=== PATIENT | female | born 1985 | race Caucasian/White ===

== ENCOUNTER → 2025-01-13 13:54 | Outpatient (REF) | payer BC, SELFPAY | LOC: PNTC 13:54 | PROVIDERS: ATTENDING PHYSICIAN Obstetrics & Gynecology | DX: O99.210 Obesity complicating pregnancy, unspecified trimester (principal); O09.529 Supervision of elderly multigravida, unspecified trimester | CPT/HCPCS: 76801; 76813 ==

== ENCOUNTER → 2025-02-03 15:51 | Outpatient (REF) | payer BC, SELFPAY | LOC: PNTC 15:51 | PROVIDERS: ATTENDING PHYSICIAN Obstetrics & Gynecology | DX: O99.210 Obesity complicating pregnancy, unspecified trimester (principal) | CPT/HCPCS: 76805 ==

== ENCOUNTER → 2025-03-10 09:51 | Outpatient (REF) | payer BC, SELFPAY | LOC: PNTC 09:51 | PROVIDERS: ATTENDING PHYSICIAN Obstetrics & Gynecology | DX: O99.210 Obesity complicating pregnancy, unspecified trimester (principal); O09.529 Supervision of elderly multigravida, unspecified trimester | CPT/HCPCS: 76811; 76817 ==

== ENCOUNTER → 2025-04-18 10:30 | Outpatient (REF) | payer BC, SELFPAY | LOC: PNTC 10:30 | PROVIDERS: ATTENDING PHYSICIAN Student in an Organized Health Care Education/Training Program | DX: O09.529 Supervision of elderly multigravida, unspecified trimester (principal); O99.210 Obesity complicating pregnancy, unspecified trimester; Q21.0 Ventricular septal defect | CPT/HCPCS: 76816 ==

== ENCOUNTER → 2025-05-26 11:28 | Outpatient (REF) | payer BC, SELFPAY | LOC: PNTC 11:28 | PROVIDERS: ATTENDING PHYSICIAN Student in an Organized Health Care Education/Training Program | DX: Q21.0 Ventricular septal defect (principal); O99.213 Obesity complicating pregnancy, third trimester; O09.523 Supervision of elderly multigravida, third trimester; O35.B Maternal care for other (suspected) fetal abnormality and damage, fetal cardiac anomalies | CPT/HCPCS: 76816 ==

== ENCOUNTER → 2025-06-13 09:58 | Outpatient (REF) | payer BC, SELFPAY | LOC: PNTC 09:58 | PROVIDERS: ATTENDING PHYSICIAN Student in an Organized Health Care Education/Training Program | DX: O09.523 Supervision of elderly multigravida, third trimester (principal); O99.213 Obesity complicating pregnancy, third trimester; O35.B Maternal care for other (suspected) fetal abnormality and damage, fetal cardiac anomalies; Q21.0 Ventricular septal defect | CPT/HCPCS: 59025; 76815 ==

== ENCOUNTER → 2025-06-20 10:01 | Outpatient (REF) | payer BC, SELFPAY | LOC: PNTC 10:01 | PROVIDERS: ATTENDING PHYSICIAN Student in an Organized Health Care Education/Training Program | DX: O99.213 Obesity complicating pregnancy, third trimester (principal); O09.523 Supervision of elderly multigravida, third trimester; O35.B Maternal care for other (suspected) fetal abnormality and damage, fetal cardiac anomalies; Q21.0 Ventricular septal defect | CPT/HCPCS: 59025; 76815 ==

== ENCOUNTER 2025-06-27 10:52 | Observation (INO) | payer BC, SELFPAY ==
[2025-06-27 11:23] LABS: Urine Character Clear (Clear)
[2025-06-27 11:24] LABS: Hematocrit 30.4 % (37.0-47.0); Hemoglobin 10.7 g/dL (12.0-16.0); Mean Corp Hgb Conc. 35.2 g/dL (33.0-37.0); Mean Corpuscular Volume 83.3 fL (81.0-99.0); Platelet Count 163 10^3/uL (130-400); Red Cell Dist. Width 13.1 % (11.5-14.5)
[2025-06-27 11:37] VITALS: BP 145/72; BMI 38.6
[2025-06-27 11:40] LABS: ALT (SGPT) 13 U/L (0-35); AST (SGOT) 17 U/L (14-36); Albumin 3.5 g/dl (3.5-5.0); Alkaline Phosphatase 107 U/L (38-126); Blood Urea Nitrogen 6 mg/dl (7-17); Calcium 9.1 mg/dl (8.4-10.2); Carbon Dioxide 22 mmol/L (22-30); Chloride 105 mmol/L (98-107); Glucose 80 mg/dl (70-99); Potassium 3.4 mmol/L (3.5-5.1); Sodium 132 mmol/L (135-145); Total Protein 6.2 g/dl (6.3-8.2); eGFR > 60.00
[2025-06-27 11:48] LABS: Urine Squamous Cell >30 /LPF (Few)
== END 2025-06-27 12:40 | disposition home or self-care (01) ==
LOC: PNTC-IN 10:52
PROVIDERS: ADMITTING PHYSICIAN Obstetrics & Gynecology; ATTENDING PHYSICIAN Student in an Organized Health Care Education/Training Program
DX: O99.213 Obesity complicating pregnancy, third trimester (principal); O09.523 Supervision of elderly multigravida, third trimester; R03.0 Elevated blood-pressure reading, without diagnosis of hypertension; Z3A.36 36 weeks gestation of pregnancy; O36.63X0 Maternal care for excessive fetal growth, third trimester, not applicable or unspecified; Z88.1 Allergy status to other antibiotic agents
CPT/HCPCS: 59025; 76816; 80053; 81003; 81015; 82570; 84156; 85027; G0378

== ENCOUNTER 2025-07-04 10:56 | Inpatient (IN) | payer BC, SELFPAY ==
[2025-07-04 11:06] VITALS: BMI 38.9
[2025-07-04 11:09] VITALS: BP 149/85
[2025-07-04 11:27] LABS: Hematocrit 29.1 % (37.0-47.0); Hemoglobin 10.5 g/dL (12.0-16.0); Mean Corp Hgb Conc. 36.1 g/dL (33.0-37.0); Mean Corpuscular Volume 83.1 fL (81.0-99.0); Platelet Count 180 10^3/uL (130-400); Red Cell Dist. Width 13.3 % (11.5-14.5)
--- NOTE | 2025-07-04 11:34 | HPS.HSE ---
Family Physician
-
Family Physician: Carli Hinojosa DO
Chief Complaint
-
elevated blood pressures
History of Present Illness
HPI: Patient is a 40yo @37.5 who presents from [facility] with elevated BPs. She had elevated BPs on 06/27 and today, meeting criteria for at least gestational hypertension. Since patient >37wks, recommend delivery. Denies headache, vision changes,
chest pain, shortness of breath or RUQ pain.
complications
- Small to moderate VSD on echo- needs echo prior to discharge and Cardiology follow up outpatient
- FOB w/ history of VSD
- History PEC in G1
- History of shoulder dystocia G1, baby 7lb 5oz
- Advanced maternal age
- BMI 36.4
PMHx: Obesity
Meds: zyrtec, pepcid, PNV
Surghx: denies
All: cephalosporins
Socialhx: denies tobacco, etoh or illicit drug use
Famhx: non-contributory
OBHx: 05/2022 w/ shoulder dystocia 7lb 5oz
labs: Blood type B+, Ab neg, RPR non-reactive, UCx neg, HBsAg neg, HIV neg, GCCT neg, Rubella immune, Hep C neg, 1hr 98, GBS neg
Medical History
Past Medical History
Past Medical History: Reports None
Past Surgical History: Reports None
Social History
Tobacco: Non-smoker
Alcohol: None
Drug: None
Family History
Family History: Not pertinent
Allergies / Home Medications
Allergies reflects when Allergies were last updated in [facility].
Home Medications with original date entered in [facility]
Allergy/Medication List:
Meds: zyrtec, pepcid, PNV
All: cephalosporins
Review of Systems
-
A 12 point ROS was completed and negative except as noted: Yes
Physical Exam
Vital Signs
Vital Signs
Temp Pulse Resp BP
98.4 F 91 18 149/85
07/04/25 11:09 07/04/25 11:09 07/04/25 11:09 07/04/25 11:09
Physical Exam
General: Well Developed and Well Nourished
HEENT: NormoCephalic
Respiratory: Non Labored Respirations
Cardiac: Regular Rhythm
Genito-urinary: Deferred by me
Skin: Warm and Dry
Neuro: Awake, Alert and Oriented
Psych: Calm
Laboratory Results
-
07/04/25 11:16
Impression/Plan
-
IMPRESSION:
40yo @37.5 gHTN vs PEC with history of shoulder dystocia
PLAN:
- Patient with elevated BPs in [facility] today and on 06/27, meeting criteria for gestational hypertension or preeclampsia. Since she is >37wks, delivery is indicated. PEC labs ordered
- She has a history of a shoulder dystocia in G1 and baby weighed 7lb 5oz. This baby is measuring 3800g >90th percentile. Patient was previously counseled on induction of labor vs primary section and she would like to proceed with primary
section. Risks, benefits and alternatives reviewed including bleeding, infection, damage to surrounding structures and need for future operations. Patient also consented for a blood transfusion if needed.
- Gentamicin 5mg/kg and Clindamycin 900mg ordered for antibiotic prophylaxis
- NICU aware of VSD on echo. Report printed
- Proceed with primary section
[2025-07-04 11:56] LABS: ALT (SGPT) 16 U/L (0-35); AST (SGOT) 23 U/L (14-36); Albumin 3.5 g/dl (3.5-5.0); Alkaline Phosphatase 117 U/L (38-126); Blood Urea Nitrogen 9 mg/dl (7-17); Calcium 9.2 mg/dl (8.4-10.2); Carbon Dioxide 21 mmol/L (22-30); Chloride 107 mmol/L (98-107); Estimated Creatinine Clearance > 125 ml/min; Glucose 89 mg/dl (70-99); Potassium 3.4 mmol/L (3.5-5.1); Sodium 131 mmol/L (135-145); Total Protein 6.2 g/dl (6.3-8.2); eGFR > 60.00
[2025-07-04] MEDS: LR 1000 IV (13:01)
[2025-07-04] MEDS: TYLENOL 975 MG PO (14:31)
[2025-07-04] MEDS: BICITRA 30 ML PO (15:05)
[2025-07-04] MEDS: GENTAMICIN 60 MG IV (15:05)
[2025-07-04] MEDS: CLEOCIN 50 IV (15:05)
--- NOTE | 2025-07-04 18:02 | OR.RPT ---
Operative Report
Operative Report
Procedure date: 07/04/2025
Preop diagnosis: IUP @37.5, preeclampsia without severe features, history of shoulder dystocia, suspected macrosomia, advanced maternal age
Postop diagnosis: same
Surgeon: Emani Vaughan DO
Anesthesia: Spinal, Jaxon
QBL: 965mL
Findings: viable male infant born at 1610, weighing 8lb 13oz, Apgars 8/9, normal appearing uterus, bilateral fallopian tubes and ovaries. Hematoma on the left side of the hysterotomy- non expanding. Surgicel placed over hysterotomy. Bleeding between
inferior between rectus and fascia controlled with Bovie and Surgicel
Complications: none
Pathology: Placenta
Indication: Patient is a 40yo @37.5 who was at testing center for routine non-stress today and had elevated blood pressures. She also had elevated blood pressures at testing last week, now meeting criteria for preeclampsia
without severe features. Since she is over 37 weeks, delivery recommended. She has a history of a shoulder dystocia in her first and this baby is measuring one pound larger. She was previously counseled on induction of labor versus primary
section and she elected to proceed with primary section. Risks, benefits and alternatives were reviewed and all questions answered prior to proceeding. Consents were signed and in the chart.
Procedure: Patient was taken to the operating room where spinal anesthesia was administered and found to be adequate. 5mg/kg of gentamicin and 900mg of clindamycin were given for antibiotic prophylaxis. The abdomen was prepped with ChloraPrep. The
patient was draped in the normal sterile fashion. She was placed in the dorsal supine position with a left lateral tilt. A Pfannenstiel incision was made with a 10 blade and carried down to the fascia with a scalpel. Hemostasis achieved with Bovie.
The fascia was incised and dissected laterally with Day scissors. The superior aspect of the fascia was grasped with Raymond clamps. The underlying rectus fascia was sharply dissected with Day scissors. In a similar fashion the inferior aspect of
the fascia was elevated with Raymond clamps and the rectus muscle was dissected off with Day scissors. The rectus muscles were down the midline to the level of the pubic symphysis with manual dissection. The peritoneum was elevated with
hemostats and entered with Metzenbaum scissors. The peritoneum was then extended using manual traction and Metzenbaum scissors.
Adams retractor and bladder blade were placed revealing good visualization of the bladder. The vesicouterine peritoneum was identified. A thin lower uterine segment was noted. The lower uterine segment was incised with a scalpel. Clear amniotic
fluid noted at entry in the amniotic cavity. The uterine incision was extended bluntly with lateral and upward traction.
The fetus was in cephalic presentation. The head was elevated out of the pelvis with special attention paid to avoid using the uterine incision as a fulcrum. Gentle fundal pressure was applied once the head was brought to the incision. The head
delivered through the hysterotomy. The rest of the delivered without difficulty. Delayed cord clamping was performed. The was handed off to the casing cooker. IV oxytocin was started to facilitate uterine contractions. The placenta was
removed with fundal massage and gentle downward traction on the umbilical cord. The uterus was exteriorized. Allis clamps were placed at the apices of the hysterotomy. The inside of the uterus was wiped with a lap sponge to assure complete removal
of placental membranes. Fundal massage was performed and uterus was firm. The uterine incision was closed with 0 Vicryl in a running locked fashion. A horizontal imbricating stitch was done on the hysterotomy with 0 Vicryl. There was oozing at the
left side of the hysterotomy and multiple figure of eights were placed with 0 and 2-0 Vicryl to achieve hemostasis. There was also oozing from the center of the hysterotomy and a figure of eight was placed with 2-0 Vicryl to achieve hemostasis.
There was a hematoma on the left side of the hysterotomy that was watched for several minutes and was not expanding. The hysterotomy was inspected and noted to be hemostatic. The uterus was placed back in the abdomen. Blood clots and fluid were
wiped out of the abdomen and pelvis with moist laparotomy sponges. Surgicel was placed over the hysterotomy. The hysterotomy was examined and was hemostatic.
The rectus muscles were inspected and any small oozing vessels were cauterized with the Bovie to achieve hemostasis. There was bleeding inferiorly between the rectus muscles and the fascia. This area was cauterized with the Bovie. There was still a
small amount of oozing and Surgicel was placed to aid in hemostasis. The fascial layer was closed in a running continuous fashion using 0 Vicryl. The subcutaneous tissue was copiously irrigated and any small bleeding vessels were cauterized with
Bovie cautery. The subcutaneous tissue was reapproximated in a running continuous fashion with 2-0 Plain. The skin was closed with 4-0 Vicryl in a subcuticular fashion and covered with skin glue and a pressure dressing. The patient tolerated the
procedure well. All sponge and instrument counts were correct times two.
The patient was taken to the recovery room in stable condition. Rizo catheter was draining clear urine at the end of the procedure.
[2025-07-04] MEDS: PITOCIN 30 UNITS/NSS 500 ML IV (18:32)
[2025-07-04] MEDS: FEOSOL PO (18:32)
[2025-07-04] MEDS: AMOXIL 500 MG PO (19:54)
[2025-07-04] MEDS: COLACE PO (20:01)
[2025-07-04] MEDS: TORADOL 15 MG IV (23:10)
[2025-07-05] MEDS: TORADOL 15 MG IV ×3 (04:56→17:30)
[2025-07-05 05:29] LABS: Hematocrit 27.1 % (37.0-47.0); Hemoglobin 9.4 g/dL (12.0-16.0); Mean Corp Hgb Conc. 34.7 g/dL (33.0-37.0); Mean Corpuscular Volume 85.5 fL (81.0-99.0); Platelet Count 164 10^3/uL (130-400); Red Cell Dist. Width 13.2 % (11.5-14.5)
--- NOTE | 2025-07-05 07:27 | W.PN.ANS.POP ---
Anesthesia Post Operative
- Anesthesia Post Op Note
Vital Signs Stable-See Nursing Note: Yes
Airway Patent: Yes
Adequate Pain Control: Yes
Change in Mental Status: No
Current Postoperative Nausea & Vomiting: No
Anesthesia Complications: No
General Anesthetic Recall: No
Unplanned Admission: No
Post Op Hydration Adequate: Yes
[2025-07-05] MEDS: COLACE 100 MG PO ×2 (09:21→19:45)
[2025-07-05] MEDS: AMOXIL 500 MG PO ×2 (09:21→19:45)
[2025-07-05] MEDS: PEPCID 10 MG PO (09:21)
[2025-07-05] MEDS: ZYRTEC 10 MG PO (09:22)
[2025-07-05] MEDS: FEOSOL 325 MG PO (09:22)
[2025-07-05] MEDS: PRENATAL PLUS 1 TABLET PO (09:22)
[2025-07-05 11:44] LABS: Syphilis/T. pallidum Ab Reflex Negative (Negative)
[2025-07-05] MEDS: TYLENOL 650 MG PO (21:56)
[2025-07-06] MEDS: MOTRIN 600 MG PO ×2 (00:02→09:51)
[2025-07-06] MEDS: AMOXIL 500 MG PO (08:40)
[2025-07-06] MEDS: PEPCID 10 MG PO (08:40)
[2025-07-06] MEDS: COLACE 100 MG PO (08:40)
[2025-07-06] MEDS: ZYRTEC 10 MG PO (08:41)
[2025-07-06] MEDS: PRENATAL PLUS 1 TABLET PO (08:41)
[2025-07-06] MEDS: TYLENOL 650 MG PO (14:07)
== END 2025-07-06 18:05 | disposition home or self-care (01) | DRG 788 ==
LOC: LDRP 10:56
PROVIDERS: ADMITTING PHYSICIAN Student in an Organized Health Care Education/Training Program; FAMILY PHYSICIAN Internal Medicine
PROC: 10D00Z1 Extraction of Products of Conception, Low, Open Approach (ICD-10-PCS; 2025-07-04)
DX: O14.04 Mild to moderate pre-eclampsia, complicating childbirth (principal); Z3A.37 37 weeks gestation of pregnancy; Z37.0 Single live birth; O35.BXX0 Maternal care for other (suspected) fetal abnormality and damage, fetal cardiac anomalies, not applicable or unspecified; O99.214 Obesity complicating childbirth; J32.9 Chronic sinusitis, unspecified; Z88.1 Allergy status to other antibiotic agents
CPT/HCPCS: 59025; 76815; 80053; 82570; 84156; 85027; 86780; 86850; 86900; 86901; 88307